=== PATIENT | male | born 1985 | race African-American/Black ===

== ENCOUNTER 2016-07-11 11:38 | Emergency (ER) | payer OTHER ==
[2016-07-11] MEDS ORDERED: LIDOCAINE 1% INJ-PF (10 MG/ML) 30 ML SDV INJ ONE (11:53)
[2016-07-11] MEDS ORDERED: DIPH/PERTUSS(ACELL)/TETANUS VAC/PF 0.5 ML SYR (>=10YO) IM ONE (11:53)
[2016-07-11] MEDS ORDERED: CEPHALEXIN 500 MG CAPSULE PO ONE (11:53)
--- NOTE | 2016-07-11 13:01 | ER Document Report ---
HPI - HPI Patient complains to provider of: laceration Pain Level: 0 Context: She is a 30-year-old male presents emergency Department complaining of right wrist laceration. 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 He admits to bleeding but otherwise denies any range of motion, sensation, motor function changes. Patient states his tetanus is not up-to- date. - DERM Skin Color: Normal Past Medical History - Social History Smoking Status: Current Every Day Smoker Family History: Reviewed & Not Pertinent Patient has suicidal ideation: No Patient has homicidal ideation: No Renal/ Medical History: Denies: Hx Peritoneal Dialysis - Immunizations Hx Diphtheria, Pertussis, Tetanus Vaccination: Yes Vertical Provider Document - CONSTITUTIONAL Agree With Documented VS: Yes Exam Limitations: No Limitations General Appearance: WD/WN, No Apparent Distress - INFECTION CONTROL TRAVEL OUTSIDE OF THE [place] IN LAST 30 DAYS: No - RESPIRATORY O2 Sat by Pulse Oximetry: 98 - CARDIOVASCULAR Pulses: Normal: Radial Notes: Capillary refill less than 2 seconds in all upper extremity digits - MUSCULOSKELETAL/EXTREMETIES Musculoskeletal/Extremeties: MAEW, FROM, Non-Tender, No Edema. negative: Eccymosis - NEURO Level of Consciousness: Awake, Alert, Appropriate Motor/Sensory: No Motor Deficit, No Sensory Deficit - DERM Integumentary: Laceration - 3 cm no evidence of bleeding Course - Re-evaluation Re-evalutation: 07/11/16 13:53 And irrigated with Betadine and saline, closed with 4-0 nylon suture. Patient told to take and back as prescribed and follow-up with primary care in 8-10 days for suture removal - Vital Signs Vital signs: Temp Pulse Resp BP Pulse Ox 98.2 F 71 18 152/90 H 98 07/11/16 11:42 07/11/16 11:42 07/11/16 11:42 07/11/16 11:42 07/11/16 11:42 Procedures - Laceration/Wound Repair Right Wrist Wound length (cm): 3 Wound's Depth, Shape: Superficial, Linear Laceration pre-procedure: Sterile PPE donned, Betadine prep applied, Sterile drapes applied Anesthetic type: 1% Lidocaine Volume Anesthetic (mLs): 3 Wound explored: Clean, No foreign body removed Irrigated w/ Saline (mLs): 100 Wound Debrided: Minimal Wound Repaired With: Sutures Suture Size/Type: 4:0, Nylon Post-procedure wound care: Sterile dressing applied Post-procedure NV exam normal: Yes Complications: No Discharge - Discharge Clinical Impression: Laceration Condition: Good Disposition: HOME, SELF-CARE Instructions: Antibiotic Ointment Protection ([facility]), Laceration Care ([facility]), Prophylactic Antibiotic ([facility]), Soap Cleansing ([facility]), Tetanus Immunization Given ([facility]) Additional Instructions: Please follow-up with your primary care provider in 8-10 days every stitches removed Prescriptions: Cephalexin Monohydrate [Keflex 500 mg Capsule] 500 mg PO BID 7 Days Forms: Elevated Blood Pressure
[2016-07-11 13:26] VITALS: BP 136/80
== END 2016-07-11 13:34 | disposition home or self-care (01) ==
LOC: ER 11:38
PROC: 0HQDXZZ Repair Right Lower Arm Skin, External Approach (ICD-10-PCS; principal; 2016-07-11)
DX: S61.511A Laceration without foreign body of right wrist, initial encounter (principal); W25.XXXA Contact with sharp glass, initial encounter; Y92.69 Other specified industrial and construction area as the place of occurrence of the external cause; Y99.0 Civilian activity done for income or pay; Z23 Encounter for immunization
CPT/HCPCS: 99283; 90471; 73100; 90715; 12002; J3490

== ENCOUNTER 2017-07-08 20:22 | Emergency (ER) | payer OTHER ==
[2017-07-08] MEDS ORDERED: LIDOCAINE 1% INJ-PF (10 MG/ML) 30 ML SDV INJ ONE (21:10)
[2017-07-08] MEDS ORDERED: AMOXICILLIN TR/POT CLAVULANATE 250-125 MG TAB PO ONE (21:11)
--- NOTE | 2017-07-08 21:11 | ER Document Report ---
HPI - HPI Pain Level: 2 Context: Patient is a 31-year-old male who presents emergency department the chief complaint of foreign body in his right hand. Patient states that he was at work working with a fiberglass bring that broke and he got some splinters above his thumb. He states that he got most of it out but that he still feels like there is a large piece overlying his thumb. He otherwise denies any other open wounds. States his tetanus is up-to-date. - NEURO Neurology: DENIES: Headache, Weakness - CARDIOVASCULAR Cardiovascular: DENIES: Chest pain - GASTROINTESTINAL Gastrointestinal: DENIES: Abdominal Pain - MUSCULOSKELETAL Musculoskeletal: REPORTS: Extremity pain - rt hand Past Medical History - Social History Smoking Status: Current Every Day Smoker Chew tobacco use (# tins/day): No Frequency of alcohol use: None Drug Abuse: None Family History: Reviewed & Not Pertinent Patient has suicidal ideation: No Patient has homicidal ideation: No Renal/ Medical History: Denies: Hx Peritoneal Dialysis - Immunizations Hx Diphtheria, Pertussis, Tetanus Vaccination: Yes Vertical Provider Document - CONSTITUTIONAL Agree With Documented VS: Yes Notes: PHYSICAL EXAM GENERAL: Alert, interacts well. EXTREMITIES: Moves all 4 extremities spontaneously. No edema, radial and dorsalis pedis pulses 2/4 bilaterally. No cyanosis. NEUROLOGICAL: Alert and oriented x4. Normal speech. PSYCH: Normal affect, normal mood. SKIN: Warm, dry, normal turgor. Puncture wound noted over the dorsal aspect of the right metacarpal with a palpable foreign body - INFECTION CONTROL TRAVEL OUTSIDE OF THE [place] IN LAST 30 DAYS: No Course - Re-evaluation Re-evalutation: 07/08/17 22:40 patient is a 31-year-old male who presents with foreign body in the right hand with x-ray evidence. Site was anesthetized and a 0.5 cm incision was made and foreign body removed. Patient initiated on Augmentin and educated on wound care. Stable for discharge home - Vital Signs Vital signs: Temp Pulse Resp BP Pulse Ox 99.0 F 77 20 125/86 H 97 07/08/17 20:29 07/08/17 20:29 07/08/17 20:29 07/08/17 20:29 07/08/17 20:29 Procedures - Additional Procedures foreign body removal Additional Procedures: Other - Foreign body removal right dorsal thenar area anesthetized with 2 cc lidocaine and .5cm incision to extract 2cm fiber glass fiber Discharge - Discharge Clinical Impression: Foreign body Condition: Good Disposition: HOME, SELF-CARE Instructions: Removal of Subcutaneous Foreign Object ([facility]) Prescriptions: Amox Tr/Potassium Clavulanate [Augmentin 875-125 mg Tablet] 1 tab PO BID #14 tablet Referrals: DEVORA GILLILAND MD [Primary Care Provider] - Follow up as needed
[2017-07-08 22:51] VITALS: BP 138/89
--- NOTE | 2017-07-08 23:51 | RADIOLOGY REPORT (SQ) ---
EXAM DESCRIPTION: HAND LEFT 3 VIEWS COMPLETED DATE/TIME: 07/08/2017 8:51 pm REASON FOR STUDY: pain, r/o FB COMPARISON: None. EXAM PARAMETERS: NUMBER OF VIEWS: Three views. TECHNIQUE: AP, lateral and oblique radiographic images acquired of the left hand. LIMITATIONS: None. FINDINGS: MINERALIZATION: Normal. BONES: No acute fracture or dislocation. No worrisome bone lesions. JOINTS: No effusions. SOFT TISSUES: There are two linear 1 mm thick radiodensities approximately 1.5 cm length each overlyi ng the soft tissues of the 1st metacarpal seen on two views, possible foreign body. . OTHER: No other significant finding. IMPRESSION: There are two linear 1 mm thick radiodensities approximately 1.5 cm length each overlyin g the soft tissues of the 1st metacarpal seen on two views, possible foreign body. No fracture. TECHNICAL DOCUMENTATION: JOB ID: [id number] [place]-72 2010 [employer]- All Rights Reserved Reading location - IP/workstation name: [email or web address]
== END 2017-07-08 22:51 | disposition home or self-care (01) ==
LOC: ER 20:22
PROC: 0JCJ0ZZ Extirpation of Matter from Right Hand Subcutaneous Tissue and Fascia, Open Approach (ICD-10-PCS; principal; 2017-07-08)
DX: S61.441A Puncture wound with foreign body of right hand, initial encounter (principal); X58.XXXA Exposure to other specified factors, initial encounter; Y99.0 Civilian activity done for income or pay; F17.200 Nicotine dependence, unspecified, uncomplicated
CPT/HCPCS: 99283; 73130; 20103; J3490 ×2

== ENCOUNTER 2017-08-04 17:57 | Emergency (ER) | payer OTHER ==
[2017-08-04 18:20] VITALS: BP 133/78
--- NOTE | 2017-08-04 18:32 | RADIOLOGY REPORT (SQ) ---
EXAM DESCRIPTION: HAND RIGHT 3 VIEWS COMPLETED DATE/TIME: 08/04/2017 6:23 pm REASON FOR STUDY: FB in hand COMPARISON: None. EXAM PARAMETERS: NUMBER OF VIEWS: Three views. TECHNIQUE: AP, lateral and oblique radiographic images acquired of the right hand. LIMITATIONS: None. FINDINGS: MINERALIZATION: Normal. BONES: No acute fracture or dislocation. No worrisome bone lesions. JOINTS: No effusions. SOFT TISSUES: A linear foreign body is seen in the soft tissues between 1st and 2nd metacarpals. On the AP oblique views this appears quite close to the 1st metacarpal and is dorsal to the 1st metacarp al on the lateral view. OTHER: No other significant finding. IMPRESSION: Foreign body. TECHNICAL DOCUMENTATION: JOB ID: [id number] [employer]- All Rights Reserved Reading location - IP/workstation name: [email or web address]
--- NOTE | 2017-08-04 18:50 | ER Document Report ---
HPI - HPI Pain Level: 1 - MUSCULOSKELETAL Musculoskeletal: REPORTS: Extremity pain Past Medical History - Social History Smoking Status: Unknown if Ever Smoked Family History: Reviewed & Not Pertinent Patient has suicidal ideation: No Patient has homicidal ideation: No Renal/ Medical History: Denies: Hx Peritoneal Dialysis - Immunizations Hx Diphtheria, Pertussis, Tetanus Vaccination: Yes Vertical Provider Document - INFECTION CONTROL TRAVEL OUTSIDE OF THE [place] IN LAST 30 DAYS: No Course - Vital Signs Vital signs: Temp Pulse Resp BP Pulse Ox 99.4 F 99 16 133/78 H 97 08/04/17 18:18 08/04/17 18:18 08/04/17 18:18 08/04/17 18:18 08/04/17 18:18
--- NOTE | 2017-08-04 19:04 | ER Document Report ---
ED Medical Screen (RME) - General Chief Complaint: Hand Pain Stated Complaint: OBJECT IN RT HAND Time Seen by Provider: 08/04/17 18:11 Mode of Arrival: Ambulatory Information source: Patient Notes: 31-year-old male with fiberglass in his right hand that occurred 3 weeks ago. He came to the emergency room and part of it was taken out and some still left in his hand and he uses tools that causes a pinching and some pain when he uses the tools is some is still in there and it has been seen on x-ray. Patient's been transferred to room 38 and nurse practitioner Eldon Mayo will get the foreign body out which the patient is requesting at this time. TRAVEL OUTSIDE OF THE [place] IN LAST 30 DAYS: No - Related Data Allergies/Adverse Reactions: No Known Allergies Allergy (Verified 08/04/17 17:59) Past Medical History Renal/ Medical History: Denies: Hx Peritoneal Dialysis - Immunizations Hx Diphtheria, Pertussis, Tetanus Vaccination: Yes Physical Exam - Vital signs Vitals: Temp Pulse Resp BP Pulse Ox 99.4 F 99 16 133/78 H 97 08/04/17 18:18 08/04/17 18:18 08/04/17 18:18 08/04/17 18:18 08/04/17 18:18 Course - Vital Signs Vital signs: Temp Pulse Resp BP Pulse Ox 99.4 F 99 16 133/78 H 97 08/04/17 18:18 08/04/17 18:18 08/04/17 18:18 08/04/17 18:18 08/04/17 18:18
--- NOTE | 2017-08-04 19:18 | ER Document Report ---
ED Hand/Wrist Injury - General Chief Complaint: Hand Pain Stated Complaint: OBJECT IN RT HAND Time Seen by Provider: 08/04/17 18:11 Mode of Arrival: Ambulatory Information source: Patient TRAVEL OUTSIDE OF THE [place] IN LAST 30 DAYS: No - HPI Patient complains to provider of: fb in hand Notes: The patient is here with complaints of foreign body in right hand. The patient was here approximately a month ago when he had 2 fiberglass splinters in her his hand when the tool he was using broke. He had one of the foreign bodies removed. He continues to have foreign body sensation in the right hand between the thumb and the index finger that causes him pain at times. No fevers. No numbness, tingling, weakness. No nausea, vomiting, diarrhea. No redness. Is here requesting to have a second foreign body removed at this time. He denies any other complaints at this time. - Related Data Allergies/Adverse Reactions: No Known Allergies Allergy (Verified 08/04/17 17:59) Past Medical History - General Information source: Patient - Social History Smoking Status: Unknown if Ever Smoked Family History: Reviewed & Not Pertinent Patient has suicidal ideation: No Patient has homicidal ideation: No Renal/ Medical History: Denies: Hx Peritoneal Dialysis - Immunizations Hx Diphtheria, Pertussis, Tetanus Vaccination: Yes Review of Systems - Review of Systems -: Yes All other systems reviewed and negative Physical Exam - Vital signs Vitals: Temp Pulse Resp BP Pulse Ox 99.4 F 99 16 133/78 H 97 08/04/17 18:18 08/04/17 18:18 08/04/17 18:18 08/04/17 18:18 08/04/17 18:18 - Notes Notes: GENERAL: alert, cooperative, nontoxic, no distress. HEAD: normocephalic, atraumatic EYES: conjunctiva pink without discharge, no external redness or swelling. EARS: no external swelling, no external redness NOSE: atraumatic, no external swelling MOUTH/THROAT: mucous membranes moist and pink NECK: soft, supple, full range of motion, no meningismus. CHEST: no distress, lungs clear and equal throughout. No wheezing, rales, rhonchi. CARDIAC: regular rate and rhythm, no murmur, normal capillary refill, normal pulses. BACK: full range of motion, no CVA tenderness. EXTREMITIES: full range of motion of all extremities. No redness, no swelling. Foreign body palpable between the right thumb and index finger. No redness. No abscess. Minimal tenderness. Full range of motion of the hand, thumb, fingers. Normal cap refill and sensation distally. NEURO: alert and oriented 3, no focal deficits, full range of motion of all extremities. PYSCH: appropriate mood, affect. Patient is cooperative. SKIN: pink, warm, dry, no rash. Course - Re-evaluation Re-evalutation: 08/04/17 20:46 Patient is nontoxic appearing with stable vitals. Is here with complaints of needing a foreign body removed from the right hand. He was here months ago when he had fiberglass handle of a shovel break causing to foreign bodies to go into his hand. He had one of the foreign bodies removed a month ago. Continues to have foreign body sensation and has a palpable foreign body between his right thumb and index finger. X-ray today shows retained foreign body in this area. Using 1% lidocaine I anesthetized the area and using 11 blade and made a small incision and was able to successfully remove the foreign body from the skin. Patient tolerated procedure well with no immediate complications. Re-x-ray shows no retained foreign body. Explained that there is the possibility of very small splinters from from the fiberglass that could still potentially be in the soft tissues. He needs to watch the area closely for infection. Patient will be discharged home with referral to orthopedics as needed. Follow-up for increasing pain, fever, redness, drainage, any further concerns. The patient's emergency department workup and current diagnosis were explained to the patient and or family. Follow-up instructions were provided. Medications if prescribed were discussed. Instructions for when to return to the emergency department including specific worrisome symptoms were discussed with the patient and/or family. - Vital Signs Vital signs: Temp Pulse Resp BP Pulse Ox 99.4 F 99 16 133/78 H 97 08/04/17 18:18 08/04/17 18:18 08/04/17 18:18 08/04/17 18:18 08/04/17 18:18 - Diagnostic Test Radiology reviewed: Image reviewed, Reports reviewed - Initial x-ray shows foreign body within the hand. Repeat x-ray shows no foreign body. Procedures - Additional Procedures Foreign body removal Notes: 08/04/17 20:57 Patient is noted to have a foreign body within the right hand between the thumb and the index finger. Skin was cleaned with Shur-Clens. The area was anesthetized with 1% lidocaine. Using an 11 blade and made a small incision at the proximal aspect of the hand. I was unable to grasp the foreign body so I made a small incision with me in the left thumb and index finger were was able to push the foreign body through the incision made and grabbed the foreign body and safely remove it. Patient tolerated the procedure well with no immediate complications. Dressing will be applied. Patient has a normal neurovascular exam. Discharge - Discharge Clinical Impression: Foreign body (FB) in soft tissue Condition: Stable Disposition: HOME, SELF-CARE Instructions: Removal of Subcutaneous Foreign Object ([facility]) Additional Instructions: Soak area in warm soapy water. Keep a close eye on the area for signs of infection. Follow-up for redness, swelling, drainage, fever, severe pain, numbness, tingling, weakness, or any further concerns. Your blood pressure was elevated during today's visit. Have this rechecked with your doctor. Forms: Elevated Blood Pressure, Smoking Cessation Education Referrals: BERLIN HALLMAN MD [ACTIVE STAFF] - Follow up as needed
--- NOTE | 2017-08-04 21:02 | RADIOLOGY REPORT (SQ) ---
EXAM DESCRIPTION: HAND RIGHT 2 VIEWS COMPLETED DATE/TIME: 08/04/2017 8:25 pm REASON FOR STUDY: fb removal COMPARISON: 08/04/2017 EXAM PARAMETERS: NUMBER OF VIEWS: Two view. TECHNIQUE: AP and lateral radiographic images acquired of the right hand. LIMITATIONS: None. FINDINGS: MINERALIZATION: Normal. BONES: No acute fracture or dislocation. No worrisome bone lesions. JOINTS: No effusions. SOFT TISSUES: Foreign body has been removed. OTHER: No other significant finding. IMPRESSION: Foreign body has been removed. TECHNICAL DOCUMENTATION: JOB ID: [id number] [employer]- All Rights Reserved Reading location - IP/workstation name: [email or web address]
== END 2017-08-04 21:35 | disposition home or self-care (01) ==
LOC: ER 17:57
DX: S60.551A Superficial foreign body of right hand, initial encounter (principal); W45.8XXA Other foreign body or object entering through skin, initial encounter
CPT/HCPCS: 99283

== ENCOUNTER 2018-05-29 19:44 | Emergency (ER) | payer OTHER ==
[2018-05-29] MEDS ORDERED: LIDOCAINE 5% (700 MG) TRANSDERMAL ADH..PATCH TP ONE (21:36)
[2018-05-29] MEDS ORDERED: IBUPROFEN 800 MG TABLET PO ONE (21:36)
--- NOTE | 2018-05-29 21:38 | ER Document Report ---
HPI - HPI Patient complains to provider of: Back pain Time Seen by Provider: 05/29/18 21:22 Onset/Duration: Gradual Quality of pain: Achy Pain Level: 4 Context: Patient presents with a 3-day history of low back pain. Patient denies any injury. Patient denies any urinary symptoms. Patient denies any urinary retention or incontinence. Patient denies any fever. Patient denies any radiculopathy or paresthesia. Associated Symptoms: Other - Low back pain Exacerbated by: Movement Relieved by: Remaining still Similar symptoms previously: No Recently seen / treated by doctor: No - ROS ROS below otherwise negative: Yes Systems Reviewed and Negative: Yes All other systems reviewed and negative - CONSTITUTIONAL Constitutional: DENIES: Fever, Chills - NEURO Neurology: DENIES: Headache, Weakness - URINARY Urinary: DENIES: Dysuria, Urgency, Frequency - MUSCULOSKELETAL Musculoskeletal: REPORTS: Back Pain. DENIES: Extremity pain - DERM Skin Color: Normal Skin Problems: None Past Medical History - General Information source: Patient - Social History Smoking Status: Current Every Day Smoker Smoking Education Provided: Yes Frequency of alcohol use: None Drug Abuse: Marijuana Occupation: [employer] Family History: Reviewed & Not Pertinent - Medical History Medical History: Negative Renal/ Medical History: Denies: Hx Peritoneal Dialysis Surgical Hx: Negative - Immunizations Hx Diphtheria, Pertussis, Tetanus Vaccination: Yes Vertical Provider Document - CONSTITUTIONAL Agree With Documented VS: Yes Exam Limitations: No Limitations General Appearance: WD/WN, No Apparent Distress Notes: PHYSICAL EXAMINATION: GENERAL: Well-appearing, well-nourished and in no acute distress. Patient smells heavily of marijuana HEAD: Atraumatic, normocephalic. EYES: sclera clear, anicteric, conjunctiva are normal. ENT: nares patent, Moist mucous membranes. NECK: Normal range of motion, supple no lymphadenopathy LUNGS: respirations unlabored HEART: Regular rate and rhythm without murmurs EXTREMITIES: Normal range of motion, no pitting or edema. No cyanosis. Gait normal, pt ambulates without difficulty BACK: Lower lumbar midline tenderness, no deformities or step-offs. No CVA tenderness. NEUROLOGICAL: Cranial nerves grossly intact. Normal speech, normal gait. No saddle anesthesia. PSYCH: Normal mood, normal affect. SKIN: Warm, Dry, normal turgor, no rashes or lesions noted. - INFECTION CONTROL TRAVEL OUTSIDE OF THE [place] IN LAST 30 DAYS: No Course - Re-evaluation Re-evalutation: 05/29/18 21:36 The patient presents with low back pain without signs of spinal cord compression, cauda equina syndrome, infection, aneurysm, or other serious etiology. The patient is neurologically intact. Given the extremely risk of these diagnoses further testing and evaluation for these possibilities does not appear to be indicated at this time. Patient has been instructed to return if the symptoms worsen or change in any way. - Vital Signs Vital signs: Temp Pulse Resp BP Pulse Ox 98.9 F 99 16 153/104 H 99 05/29/18 20:11 05/29/18 20:11 05/29/18 20:11 05/29/18 20:11 05/29/18 20:11 Discharge - Discharge Clinical Impression: Low back strain Qualifiers: Encounter type: initial encounter Qualified Code(s): S39.012A - Strain of muscle, fascia and tendon of lower back, initial encounter Condition: Stable Disposition: HOME, SELF-CARE Instructions: Ice Packs ([facility]), Low Back Pain ([facility]), Warm Packs ([facility]) Additional Instructions: Return immediately for any new or worsening symptoms Followup with your primary care provider, call tomorrow to make a followup appointment Prescriptions: Metaxalone [Skelaxin 800 mg Tablet] 800 mg PO ASDIR PRN #15 tablet PRN Reason: Naproxen [Naprosyn 250 Nmg Tablet] 1 tab PO BID #14 tablet Forms: Smoking Cessation Education Referrals: [facility] [Primary Care Provider] - 05/31/18
[2018-05-29 21:55] VITALS: BP 144/90
== END 2018-05-29 22:12 | disposition home or self-care (01) ==
LOC: ER 19:44
DX: S39.012A Strain of muscle, fascia and tendon of lower back, initial encounter (principal); X58.XXXA Exposure to other specified factors, initial encounter; F17.200 Nicotine dependence, unspecified, uncomplicated; F12.10 Cannabis abuse, uncomplicated
CPT/HCPCS: 99283

== ENCOUNTER 2019-03-19 22:29 | Emergency (ER) | payer OTHER ==
[2019-03-19 22:56] VITALS: BP 158/98
== END 2019-03-20 01:30 | disposition left against medical advice (07) ==
LOC: ER 22:29
DX: Z53.21 Procedure and treatment not carried out due to patient leaving prior to being seen by health care provider (principal)